=== PATIENT | female | born 1940 | race African-American/Black ===

== ENCOUNTER 2019-10-16 15:47 | Inpatient (IN) | payer MEDICARE, MEDICAID ==
[~2019-10-16] VITALS: Ht 165.1 cm; Wt 108.4 kg
[~2019-10-16 15:47] MED LIST: ATOR20TA PO; DULO30CA2 PO; FURO20TA4 PO; OXYB10TA11 PO; POTA20TA82 PO; TOPUD PO; TRAZ-251 PO
[2019-10-16] MEDS ORDERED: MORPHINE SULFATE 2 MG/ML CPJ (NOT FOR IM USE) IV ONE (17:30)
[2019-10-16 17:52] LABS: BASOPHILS % 0.4 % (0.0-2.0); EOSINOPHILS % 2.6 % (0.0-5.0); HEMATOCRIT. 35.8 % (36.0-48.0); HEMOGLOBIN. 11.9 g/dL (12.0-16.0); MEAN CORPUSCULAR HEMOGLOBIN 30.9 pg (28.0-32.0); MEAN CORPUSCULAR VOLUME 92.9 fL (81.0-99.0); MEAN PLATELET VOLUME 7.4 fl (7.4-10.4); MONOCYTES % 4.8 % (2.0-8.0); NEUTROPHILS % 72.2 % (40.0-76.0); PLATELET 203 x1000/uL (130-400); RED BLOOD CELL COUNT 3.85 mill/uL (4.2-5.4); RED CELL DISTRIBUTION WIDTH 14.3 % (11.6-14.6)
[2019-10-16 17:58] LABS: CHLORIDE 105 mEq/L (98-107)
[2019-10-16 18:00] LABS: PROTHROMBIN TIME 10.6 sec (9.6-11.0)
[2019-10-16 23:00] VITALS: BP 148/91
[2019-10-16] MEDS ORDERED: DULO60CA64 PO (23:35)
[2019-10-16] MEDS ORDERED: DILT300C50 PO (23:35)
[2019-10-17] VITALS (7 sets, daily range): BP systolic 119–179; BP diastolic 71–101
[2019-10-17] MEDS ORDERED: CLONIDINE 0.1MG TABLET PO PRN (01:30)
[2019-10-17] MEDS ORDERED: ACETAMINOPHEN 325MG TABLET PO PRN (01:30)
[2019-10-17] MEDS: MORPHINE SULFATE 2 MG/ML CPJ (NOT FOR IM USE) IV PRN ×2 (06:17→14:31)
[2019-10-17 06:55] LABS: HEMATOCRIT 34.8 % (36.0-48.0); HEMOGLOBIN 11.5 g/dL (12.0-16.0); MEAN CORPUSCULAR HEMOGLOBIN 30.6 pg (28.0-32.0); MEAN CORPUSCULAR VOLUME 92.3 fL (81.0-99.0); PLATELET 195 x1000/uL (130-400); RED BLOOD CELL COUNT 3.77 mill/uL (4.2-5.4)
[2019-10-17 07:03] LABS: CHLORIDE 103 mEq/L (98-107)
[2019-10-17] MEDS: METOPROLOL TARTRATE 50MG TABLET PO SCH ×2 (09:13→20:32)
[2019-10-17] MEDS: AMLODIPINE 10MG TABLET PO SCH (09:14)
[2019-10-17] MEDS: DULOXETINE HCL 60MG DR CAPSULE PO SCH (09:14)
[2019-10-17] MEDS: FAMOTIDINE 20MG/2ML VIAL IV SCH (09:14)
[2019-10-17] MEDS: ENOXAPARIN 30MG/0.3ML SYR SUBCUT SCH ×2 (09:16→20:33)
[2019-10-17] MEDS ORDERED: LORAZEPAM 2MG/ML CPJ IV PRN (13:45)
[2019-10-17] MEDS ORDERED: CEFTRIAXONE 1 G PREMIX 50 ML IV SCH (14:45)
[2019-10-17] MEDS: LOSARTAN POTASSIUM 50 MG TABLET PO SCH (15:46)
[2019-10-17] MEDS: CEFTRIAXONE 1,000 MG in DEXTROSE 5% WATER 50 ML IV SCH (17:09)
[2019-10-17 18:53] LABS: CLARITY URINE CLOUDY (CLEAR); COLOR URINE YELLOW (YELLOW); KETONES URINE NEGATIVE (NEGATIVE); LEUKOCYTE ESTERASE URINE 2+ (NEGATIVE); NITRITE URINE NEGATIVE (NEGATIVE); OCCULT BLOOD URINE NEGATIVE (NEGATIVE); PROTEIN URINE 2+ (NEGATIVE); SPECIFIC GRAVITY URINE 1.015 (1.005-1.030)
[2019-10-17] MEDS: TRAZODONE HCL 50MG TABLET PO SCH (20:32)
[2019-10-17] MEDS: ATORVASTATIN CALCIUM 20MG TABLET PO SCH (20:32)
[2019-10-18] VITALS: BP 104/71
[2019-10-18 04:00] VITALS: BP 130/69
[2019-10-18 07:13] LABS: BASOPHILS % 0.5 % (0.0-2.0); EOSINOPHILS % 3.9 % (0.0-5.0); HEMATOCRIT. 34.9 % (36.0-48.0); HEMOGLOBIN. 11.2 g/dL (12.0-16.0); LYMPHOCYTES % 25.4 % (20.0-50.0); MEAN CORPUSCULAR HEMOGLOBIN 30.2 pg (28.0-32.0); MEAN CORPUSCULAR VOLUME 93.5 fL (81.0-99.0); MEAN PLATELET VOLUME 8.2 fl (7.4-10.4); MONOCYTES % 7.8 % (2.0-8.0); NEUTROPHILS % 62.4 % (40.0-76.0); PLATELET 190 x1000/uL (130-400); RED BLOOD CELL COUNT 3.73 mill/uL (4.2-5.4); RED CELL DISTRIBUTION WIDTH 14.5 % (11.6-14.6)
[2019-10-18 08:00] VITALS: BP_SYST 128; BP_SYST 164; BP_DIAS 59; BP_DIAS 84
[2019-10-18] MEDS: FAMOTIDINE 20MG/2ML VIAL IV SCH (10:41)
[2019-10-18] MEDS: LOSARTAN POTASSIUM 50 MG TABLET PO SCH (10:42)
[2019-10-18] MEDS: AMLODIPINE 10MG TABLET PO SCH (10:43)
[2019-10-18] MEDS: METOPROLOL TARTRATE 50MG TABLET PO SCH ×2 (10:43→20:50)
[2019-10-18] MEDS: DULOXETINE HCL 60MG DR CAPSULE PO SCH (10:45)
[2019-10-18] MEDS: ENOXAPARIN 30MG/0.3ML SYR SUBCUT SCH ×2 (10:45→20:51)
[2019-10-18 12:00] VITALS: BP 120/80
[2019-10-18] MEDS: SODIUM CHLORIDE 0.9% 1,000 ML IV SCH ×2 (15:15→22:52)
[2019-10-18] MEDS: CEFTRIAXONE 1,000 MG in DEXTROSE 5% WATER 50 ML IV SCH (17:13)
[2019-10-18 20:30] VITALS: BP 123/98
[2019-10-18] MEDS: ATORVASTATIN CALCIUM 20MG TABLET PO SCH (20:50)
[2019-10-18] MEDS: TRAZODONE HCL 50MG TABLET PO SCH (20:50)
[2019-10-19] VITALS: BP 142/80
[2019-10-19 04:04] VITALS: BP 101/50
[2019-10-19 08:00] VITALS: BP 127/67
[2019-10-19] MEDS: DULOXETINE HCL 60MG DR CAPSULE PO SCH (08:39)
[2019-10-19] MEDS: ENOXAPARIN 30MG/0.3ML SYR SUBCUT SCH (08:39)
[2019-10-19] MEDS: FAMOTIDINE 20MG/2ML VIAL IV SCH (08:39)
[2019-10-19] MEDS: LOSARTAN POTASSIUM 50 MG TABLET PO SCH (08:39)
[2019-10-19] MEDS: METOPROLOL TARTRATE 50MG TABLET PO SCH (08:39)
[2019-10-19] MEDS ORDERED: DILTIAZEM HCL 300MG CAPSULE SR 24HR PO SCH (09:00)
[2019-10-19 09:21] LABS: HEMATOCRIT. 32.5 % (36.0-48.0); HEMOGLOBIN. 10.7 g/dL (12.0-16.0); MEAN CORPUSCULAR HEMOGLOBIN 30.5 pg (28.0-32.0); MEAN CORPUSCULAR VOLUME 92.6 fL (81.0-99.0); MEAN PLATELET VOLUME 8.5 fl (7.4-10.4); PLATELET 189 x1000/uL (130-400); RED BLOOD CELL COUNT 3.51 mill/uL (4.2-5.4); RED CELL DISTRIBUTION WIDTH 13.6 % (11.6-14.6)
[2019-10-19] MEDS ORDERED: NITR-87 MT (11:00)
[2019-10-19 12:00] VITALS: BP 108/49
[2019-10-19 12:15] VITALS: BP 127/63
[2019-10-19 14:28] LABS: PLATELET ESTIMATE NORMAL
== END 2019-10-19 13:35 | disposition home or self-care (01) | DRG 871 ==
LOC: ER 15:47 → 6WST 20:16 → EDBEDREQSVC 20:20 → EDBEDREQ 20:20 → ENRESERV 20:50
PROVIDERS: ADMIT Internal Medicine; ATTEND Internal Medicine
PROC: 2W3RX1Z Immobilization of Left Lower Leg using Splint (ICD-10-PCS; principal; 2019-10-16)
DX: A41.9 Sepsis, unspecified organism (principal); N17.0 Acute kidney failure with tubular necrosis; S82.202A Unspecified fracture of shaft of left tibia, initial encounter for closed fracture; I50.32 Chronic diastolic (congestive) heart failure; E44.0 Moderate protein-calorie malnutrition; N39.0 Urinary tract infection, site not specified; S82.402A Unspecified fracture of shaft of left fibula, initial encounter for closed fracture; I11.0 Hypertensive heart disease with heart failure; E11.9 Type 2 diabetes mellitus without complications; D64.9 Anemia, unspecified; F03.90 Unspecified dementia, unspecified severity, without behavioral disturbance, psychotic disturbance, mood disturbance, and anxiety; E66.9 Obesity, unspecified; W01.0XXA Fall on same level from slipping, tripping and stumbling without subsequent striking against object, initial encounter; X50.1XXA Overexertion from prolonged static or awkward postures, initial encounter; Y93.89 Activity, other specified; Y92.89 Other specified places as the place of occurrence of the external cause; Y99.8 Other external cause status; Z88.8 Allergy status to other drugs, medicaments and biological substances; Z68.39 Body mass index [BMI] 39.0-39.9, adult
CPT/HCPCS: 36415; 71045; 73610; 73700; 80048; 80053; 81003; 83880; 85025; 85027; 93005; 99285; J0696; J1650; J2060; J2270; J3490; J7030; J7060

== ENCOUNTER 2021-03-19 03:45 | Inpatient (IN) | payer MEDICARE, MEDICAID ==
[~2021-03-19] VITALS: Ht 165.1 cm; Wt 102.2 kg
[~2021-03-19 03:45] MED LIST changes: +DILT300C50 PO; +NITR-87 MT
[2021-03-19] MEDS ORDERED: FUROSEMIDE 40MG/4ML VIAL IV ONE (04:15)
[2021-03-19] MEDS ORDERED: NITROGLYCERIN 0.4MG TABLET SL SL PRN (04:15)
[2021-03-19] MEDS ORDERED: ASPIRIN 81MG TABLET PO ONE (04:15)
[2021-03-19 05:16] LABS: CHLORIDE 103 mEq/L (98-107)
[2021-03-19 05:20] LABS: ETHANOL BLOOD < 10 mg/dL
[2021-03-19 07:08] LABS: BASOPHILS % 0.5 % (0.0-2.0); EOSINOPHILS % 0.4 % (0.0-5.0); HEMATOCRIT. 39.2 % (36.0-48.0); HEMOGLOBIN. 12.5 g/dL (12.0-16.0); LYMPHOCYTES % 21.5 % (20.0-50.0); MEAN CORPUSCULAR HEMOGLOBIN 29.5 pg (28.0-32.0); MEAN CORPUSCULAR VOLUME 92.2 fL (81.0-99.0); MEAN PLATELET VOLUME 7.5 fl (7.4-10.4); NEUTROPHILS % 69.6 % (40.0-76.0); PLATELET 186 x1000/uL (130-400); RED BLOOD CELL COUNT 4.25 mill/uL (4.2-5.4); RED CELL DISTRIBUTION WIDTH 14.5 % (11.6-14.6)
[2021-03-19] MEDS ORDERED: ASPIRIN 81MG TABLET PO SCH (08:15)
[2021-03-19] MEDS ORDERED: FUROSEMIDE 40MG/4ML VIAL IV SCH (08:15)
[2021-03-19 09:30] LABS: CLARITY URINE CLEAR (CLEAR); COLOR URINE YELLOW (YELLOW); KETONES URINE NEGATIVE (NEGATIVE); LEUKOCYTE ESTERASE URINE NEGATIVE (NEGATIVE); NITRITE URINE NEGATIVE (NEGATIVE); OCCULT BLOOD URINE NEGATIVE (NEGATIVE); PH URINE 6.5 (4.5-8.0); PROTEIN URINE NEGATIVE (NEGATIVE); SPECIFIC GRAVITY URINE 1.009 (1.005-1.030); UROBILINOGEN URINE 0.2 E.U./dL (0.2-1.0)
[2021-03-19 09:45] LABS: *BENZODIAZEPINES SCREEN URINE NEGATIVE (NEGATIVE); *COCAINE SCREEN URINE NEGATIVE (NEGATIVE); METHADONE URINE SCREEN NEGATIVE (NEGATIVE)
[2021-03-19 09:46] LABS: *AMPHETAMINES SCREEN URINE NEGATIVE (NEGATIVE); *BARBITURATES SCREEN URINE NEGATIVE (NEGATIVE); CANNABINOID URINE SCREEN NEGATIVE (NEGATIVE); OPIATES URINE SCREEN NEGATIVE (NEGATIVE); PHENCYCLIDINE URINE SCREEN NEGATIVE (NEGATIVE)
[2021-03-19] MEDS ORDERED: FUROSEMIDE 40MG/4ML VIAL IVP ONE (10:30)
[2021-03-19 22:55] VITALS: BP 117/44
[2021-03-20] VITALS (8 sets, daily range): BP systolic 90–123; BP diastolic 44–70
[2021-03-20] MEDS: ACETAMINOPHEN 325MG TABLET PO PRN ×2 (02:38→06:41)
[2021-03-20] MEDS: AZITHROMYCIN 500 MG in DEXT 5% WATER 250 ML IV SCH (04:12)
[2021-03-20] MEDS: CARVEDILOL 3.125 MG TABLET PO SCH ×2 (08:43→21:00)
[2021-03-20] MEDS ORDERED: ALBUTEROL 6.7GM HFA INHALER ORI PRN (08:45)
[2021-03-20] MEDS ORDERED: GUAIFENESIN-DM 200MG-20MG/10ML UDC PO PRN (08:45)
[2021-03-20] MEDS: GUAIFENESIN 600MG ER TABLET PO SCH ×3 (09:00→21:00)
[2021-03-20] MEDS ORDERED: DEXAMETHASONE 4MG/ML 1ML VIAL IV SCH (09:00)
[2021-03-20] MEDS ORDERED: LISINOPRIL 5MG TABLET PO SCH (09:00)
[2021-03-20] MEDS ORDERED: IOHEXOL-350 100 ML BOTTLE ONE (10:11)
[2021-03-20] MEDS: ENOXAPARIN 30MG/0.3ML SYR SUBCUT SCH (10:21)
[2021-03-20 11:43] LABS: BASOPHILS % 0.2 % (0.0-2.0); EOSINOPHILS % 0.1 % (0.0-5.0); HEMATOCRIT. 41.4 % (36.0-48.0); HEMOGLOBIN. 13.3 g/dL (12.0-16.0); LYMPHOCYTES % 9.8 % (20.0-50.0); MEAN CORPUSCULAR HEMOGLOBIN 29.3 pg (28.0-32.0); MEAN CORPUSCULAR VOLUME 91.3 fL (81.0-99.0); MEAN PLATELET VOLUME 8.2 fl (7.4-10.4); MONOCYTES % 5.4 % (2.0-8.0); NEUTROPHILS % 84.5 % (40.0-76.0); PLATELET 71 x1000/uL (130-400); RED BLOOD CELL COUNT 4.53 mill/uL (4.2-5.4); RED CELL DISTRIBUTION WIDTH 14.6 % (11.6-14.6)
[2021-03-20] MEDS: CEFTRIAXONE 1,000 MG in DEXTROSE 5% WATER 50 ML IV SCH (11:45)
[2021-03-20] MEDS: DEXT 5%/0.45% NACL 1000ML 1,000 ML IV SCH (15:24)
[2021-03-20] MEDS ORDERED: DIGOXIN 500MCG/2ML AMP IV NR ×2 (15:30→15:58)
[2021-03-20 15:41] LABS: BG BASE EXCESS 5.2 mmol/L (-2.0-2.0); BG CARBOXYHEMOGLOBIN 0.3 % (0.5-1.5); BG DEOXYHEMOGLOBIN 6.8 % (0.0-5.0); BG FRACTION INSPIRED OXYGEN 40; BG HCO3 ACT 34.5 mmol/L (22.0-26.0); BG METHEMOGLOBIN 0.2 % (0.0-1.5); BG OXYGEN SATURATION 93.2 % (92.0-98.5); BG OXYHEMOGLOBIN 92.7 % (94.0-97.0); BG PCO2 73.7 mmHg (35.0-45.0); BG PH 7.288 (7.350-7.450); BG PO2 70.3 mmHg (75.0-100.0); BG SAMPLE SITE RIGHT RADIAL; BG TOTAL HEMOGLOBIN 14.6 g/dL (12.0-18.0); BG VENT MODE NASAL CANNULA
[2021-03-20] MEDS ORDERED: ACETYLCYSTEINE 100MG/ML 10% VIAL 4ML INH SCH (16:00)
[2021-03-20] MEDS ORDERED: PHENYLEPHRINE 50 MG in DEXT 5% WATER 245 ML IV PRN (16:30)
[2021-03-20] MEDS ORDERED: DILTIAZEM HCL 125 MG in DEXT 5% WATER 100 ML IV PRN (16:30)
[2021-03-20] MEDS: ASPIRIN 81MG TABLET PO SCH (18:46)
[2021-03-21] VITALS (54 sets, daily range): BP systolic 53–137; BP diastolic 23–98
[2021-03-21] MEDS: DEXT 5%/0.45% NACL 1000ML 1,000 ML IV SCH ×2 (05:32→17:31)
[2021-03-21 08:24] LABS: BG BASE EXCESS 8.9 mmol/L (-2.0-2.0); BG CARBOXYHEMOGLOBIN 0.7 % (0.5-1.5); BG DEOXYHEMOGLOBIN 1.5 % (0.0-5.0); BG HCO3 ACT 34.8 mmol/L (22.0-26.0); BG METHEMOGLOBIN 0.2 % (0.0-1.5); BG OXYGEN SATURATION 98.5 % (92.0-98.5); BG OXYHEMOGLOBIN 97.6 % (94.0-97.0); BG PCO2 53.2 mmHg (35.0-45.0); BG PH 7.434 (7.350-7.450); BG PO2 116.7 mmHg (75.0-100.0); BG SAMPLE SITE RIGHT RADIAL; BG TOTAL HEMOGLOBIN 13.5 g/dL (12.0-18.0); BG VENT MODE MASK - BIPAP
[2021-03-21] MEDS: DEXAMETHASONE 10 MG/ML VIAL IV SCH (08:44)
[2021-03-21] MEDS: ASPIRIN 81MG TABLET PO SCH (08:44)
[2021-03-21] MEDS: CARVEDILOL 3.125 MG TABLET PO SCH ×2 (08:44→21:00)
[2021-03-21] MEDS: GUAIFENESIN 600MG ER TABLET PO SCH ×2 (08:44→21:22)
[2021-03-21] MEDS: AZITHROMYCIN 500 MG in DEXT 5% WATER 250 ML IV SCH (08:45)
[2021-03-21 09:49] LABS: HEMATOCRIT. 37.8 % (36.0-48.0); HEMOGLOBIN. 12.5 g/dL (12.0-16.0); MEAN CORPUSCULAR HEMOGLOBIN 29.5 pg (28.0-32.0); MEAN CORPUSCULAR VOLUME 89.3 fL (81.0-99.0); MEAN PLATELET VOLUME 8.3 fl (7.4-10.4); PLATELET 190 x1000/uL (130-400); RED BLOOD CELL COUNT 4.24 mill/uL (4.2-5.4); RED CELL DISTRIBUTION WIDTH 14.6 % (11.6-14.6)
[2021-03-21] MEDS: CEFTRIAXONE 1,000 MG in DEXTROSE 5% WATER 50 ML IV SCH (12:30)
[2021-03-21] MEDS: DILTIAZEM HCL 60MG TABLET PO SCH ×2 (12:30→17:29)
[2021-03-21] MEDS: ACETAMINOPHEN 325MG TABLET PO PRN (12:31)
[2021-03-21 13:34] LABS: T4 FREE 1.65 ng/dL (0.76-1.46)
[2021-03-21] MEDS: ENOXAPARIN 30MG/0.3ML SYR SUBCUT SCH (21:22)
[2021-03-22] VITALS (48 sets, daily range): BP systolic 103–154; BP diastolic 43–106
[2021-03-22] MEDS: DILTIAZEM HCL 60MG TABLET PO SCH ×4 (06:00→17:25)
[2021-03-22 06:14] LABS: HEMATOCRIT. 37.3 % (36.0-48.0); HEMOGLOBIN. 12.1 g/dL (12.0-16.0); MEAN CORPUSCULAR HEMOGLOBIN 29.3 pg (28.0-32.0); MEAN CORPUSCULAR VOLUME 90.4 fL (81.0-99.0); MEAN PLATELET VOLUME 9.4 fl (7.4-10.4); PLATELET 168 x1000/uL (130-400); RED BLOOD CELL COUNT 4.12 mill/uL (4.2-5.4); RED CELL DISTRIBUTION WIDTH 14.9 % (11.6-14.6)
[2021-03-22 06:53] LABS: PLATELET ESTIMATE NORMAL
[2021-03-22] MEDS ORDERED: IPRATROPIUM/ALBUTEROL 0.5-3(2.5)MG/3ML NEB ONE (08:06)
[2021-03-22] MEDS: GUAIFENESIN 600MG ER TABLET PO SCH ×2 (08:15→20:56)
[2021-03-22] MEDS: DEXAMETHASONE 10 MG/ML VIAL IV SCH (08:15)
[2021-03-22] MEDS: ASPIRIN 81MG TABLET PO SCH (08:15)
[2021-03-22] MEDS: ENOXAPARIN 30MG/0.3ML SYR SUBCUT SCH ×2 (08:15→20:44)
[2021-03-22] MEDS: CARVEDILOL 3.125 MG TABLET PO SCH ×2 (08:16→20:44)
[2021-03-22 09:12] LABS: BG BASE EXCESS 2.1 mmol/L (-2.0-2.0); BG CARBOXYHEMOGLOBIN 0.5 % (0.5-1.5); BG DEOXYHEMOGLOBIN 6.9 % (0.0-5.0); BG FRACTION INSPIRED OXYGEN 26; BG HCO3 ACT 27.4 mmol/L (22.0-26.0); BG METHEMOGLOBIN 0.3 % (0.0-1.5); BG OXYHEMOGLOBIN 92.3 % (94.0-97.0); BG PCO2 45.2 mmHg (35.0-45.0); BG PO2 64.6 mmHg (75.0-100.0); BG SAMPLE SITE LEFT RADIAL; BG TOTAL HEMOGLOBIN 12.7 g/dL (12.0-18.0); BG VENT MODE NASAL CANNULA
[2021-03-22] MEDS: DEXT 5%/0.45% NACL 1000ML 1,000 ML IV SCH (09:55)
[2021-03-22] MEDS: AZITHROMYCIN 500 MG in DEXT 5% WATER 250 ML IV SCH (09:57)
[2021-03-22] MEDS: CEFTRIAXONE 1,000 MG in DEXTROSE 5% WATER 50 ML IV SCH (11:29)
[2021-03-22 13:37] LABS: PLATELET ESTIMATE NORMAL
[2021-03-23] VITALS (24 sets, daily range): BP systolic 105–170; BP diastolic 50–99
[2021-03-23] MEDS: DILTIAZEM HCL 60MG TABLET PO SCH ×4 (05:17→18:54)
[2021-03-23 06:04] LABS: HEMATOCRIT. 38.1 % (36.0-48.0); HEMOGLOBIN. 12.4 g/dL (12.0-16.0); MEAN CORPUSCULAR HEMOGLOBIN 29.2 pg (28.0-32.0); MEAN CORPUSCULAR VOLUME 89.9 fL (81.0-99.0); MEAN PLATELET VOLUME 9.6 fl (7.4-10.4); PLATELET 163 x1000/uL (130-400); RED BLOOD CELL COUNT 4.24 mill/uL (4.2-5.4); RED CELL DISTRIBUTION WIDTH 14.5 % (11.6-14.6)
[2021-03-23] MEDS: ENOXAPARIN 30MG/0.3ML SYR SUBCUT SCH ×2 (08:08→22:26)
[2021-03-23] MEDS: GUAIFENESIN 600MG ER TABLET PO SCH ×2 (08:08→21:00)
[2021-03-23] MEDS: ASPIRIN 81MG TABLET PO SCH (08:08)
[2021-03-23] MEDS: DEXAMETHASONE 10 MG/ML VIAL IV SCH (08:09)
[2021-03-23] MEDS: CARVEDILOL 3.125 MG TABLET PO SCH ×2 (08:09→22:26)
[2021-03-23] MEDS: AZITHROMYCIN 500 MG in DEXT 5% WATER 250 ML IV SCH (08:09)
[2021-03-23] MEDS: CEFTRIAXONE 1,000 MG in DEXTROSE 5% WATER 50 ML IV SCH (09:12)
[2021-03-23 10:35] LABS: BG BASE EXCESS 4.6 mmol/L (-2.0-2.0); BG CARBOXYHEMOGLOBIN 0.8 % (0.5-1.5); BG DEOXYHEMOGLOBIN 10.2 % (0.0-5.0); BG HCO3 ACT 29.9 mmol/L (22.0-26.0); BG METHEMOGLOBIN 0.3 % (0.0-1.5); BG OXYGEN SATURATION 89.7 % (92.0-98.5); BG OXYHEMOGLOBIN 88.7 % (94.0-97.0); BG PCO2 46.5 mmHg (35.0-45.0); BG PH 7.426 (7.350-7.450); BG PO2 54.8 mmHg (75.0-100.0); BG SAMPLE SITE RIGHT RADIAL; BG TOTAL HEMOGLOBIN 15.1 g/dL (12.0-18.0); BG VENT MODE ROOM AIR
[2021-03-23] MEDS ORDERED: CLONIDINE 0.1MG TABLET PO PRN (15:15)
[2021-03-23 22:31] LABS: PLATELET ESTIMATE NORMAL
[2021-03-24] VITALS: BP 139/69
[2021-03-24 04:00] VITALS: BP 141/72
[2021-03-24] MEDS: DILTIAZEM HCL 60MG TABLET PO SCH ×2 (05:04)
[2021-03-24 08:00] VITALS: BP 153/73
[2021-03-24] MEDS: AZITHROMYCIN 500 MG in DEXT 5% WATER 250 ML IV SCH (09:08)
[2021-03-24] MEDS: GUAIFENESIN 600MG ER TABLET PO SCH ×3 (09:09→21:19)
[2021-03-24] MEDS: ENOXAPARIN 30MG/0.3ML SYR SUBCUT SCH ×2 (09:09→21:20)
[2021-03-24] MEDS: ASPIRIN 81MG TABLET PO SCH (09:09)
[2021-03-24] MEDS: DEXAMETHASONE 10 MG/ML VIAL IV SCH (09:09)
[2021-03-24] MEDS: CARVEDILOL 3.125 MG TABLET PO SCH ×3 (09:09→21:19)
[2021-03-24] MEDS: ACETAMINOPHEN 325MG TABLET PO PRN (10:09)
[2021-03-24] MEDS: CEFTRIAXONE 1,000 MG in DEXTROSE 5% WATER 50 ML IV SCH (10:43)
[2021-03-24 12:00] VITALS: BP 144/74
[2021-03-24] MEDS ORDERED: TRAMADOL 50MG TABLET PO PRN (12:00)
[2021-03-24] MEDS: DILTIAZEM HCL 30MG TABLET PO SCH ×2 (12:16→18:00)
[2021-03-24] MEDS: GABAPENTIN 100MG CAPSULE PO SCH ×3 (15:28→22:00)
[2021-03-24 16:00] VITALS: BP 141/83
[2021-03-24 20:00] VITALS: BP 143/80
[2021-03-25] MEDS: DILTIAZEM HCL 30MG TABLET PO SCH ×2 (00:47→06:00)
[2021-03-25 04:00] VITALS: BP 157/58
[2021-03-25] MEDS: GABAPENTIN 100MG CAPSULE PO SCH ×3 (06:00→21:04)
[2021-03-25 08:00] VITALS: BP 119/67
[2021-03-25] MEDS: GUAIFENESIN 600MG ER TABLET PO SCH ×2 (09:00→21:04)
[2021-03-25] MEDS ORDERED: DILTIAZEM HCL 60MG TABLET PO PRN (09:00)
[2021-03-25] MEDS: CARVEDILOL 3.125 MG TABLET PO SCH ×2 (09:00→21:04)
[2021-03-25] MEDS: ASPIRIN 81MG TABLET PO SCH (09:00)
[2021-03-25] MEDS: ENOXAPARIN 30MG/0.3ML SYR SUBCUT SCH ×2 (09:01→21:04)
[2021-03-25] MEDS: DEXAMETHASONE 10 MG/ML VIAL IV SCH (09:01)
[2021-03-25 09:07] LABS: HEMATOCRIT. 42.1 % (36.0-48.0); HEMOGLOBIN. 13.7 g/dL (12.0-16.0); MEAN CORPUSCULAR HEMOGLOBIN 29.5 pg (28.0-32.0); MEAN CORPUSCULAR VOLUME 90.7 fL (81.0-99.0); MEAN PLATELET VOLUME 9.2 fl (7.4-10.4); PLATELET 145 x1000/uL (130-400); RED BLOOD CELL COUNT 4.64 mill/uL (4.2-5.4); RED CELL DISTRIBUTION WIDTH 14.6 % (11.6-14.6)
[2021-03-25 12:00] VITALS: BP 150/82
[2021-03-25 14:54] LABS: BG BASE EXCESS 6.5 mmol/L (-2.0-2.0); BG CARBOXYHEMOGLOBIN 0.6 % (0.5-1.5); BG DEOXYHEMOGLOBIN 8.5 % (0.0-5.0); BG FRACTION INSPIRED OXYGEN 21; BG HCO3 ACT 32.9 mmol/L (22.0-26.0); BG OXYGEN SATURATION 91.4 % (92.0-98.5); BG OXYHEMOGLOBIN 90.9 % (94.0-97.0); BG PCO2 54.4 mmHg (35.0-45.0); BG PO2 59.5 mmHg (75.0-100.0); BG SAMPLE SITE RIGHT RADIAL; BG TOTAL HEMOGLOBIN 14.5 g/dL (12.0-18.0); BG VENT MODE ROOM AIR
[2021-03-25] MEDS ORDERED: ACETAMINOPHEN 325MG TABLET PO PRN (17:15)
[2021-03-25 20:00] VITALS: BP 153/92
[2021-03-26 04:00] VITALS: BP 152/87
[2021-03-26] MEDS: GABAPENTIN 100MG CAPSULE PO SCH ×3 (06:06→21:09)
[2021-03-26 08:00] VITALS: BP 153/69
[2021-03-26] MEDS: GUAIFENESIN 600MG ER TABLET PO SCH ×2 (08:59→21:07)
[2021-03-26] MEDS: ENOXAPARIN 30MG/0.3ML SYR SUBCUT SCH ×2 (08:59→21:09)
[2021-03-26] MEDS: ASPIRIN 81MG TABLET PO SCH (08:59)
[2021-03-26] MEDS: CARVEDILOL 3.125 MG TABLET PO SCH ×2 (08:59→21:08)
[2021-03-26] MEDS: DEXAMETHASONE 10 MG/ML VIAL IV SCH (08:59)
[2021-03-26 09:04] LABS: PLATELET ESTIMATE NORMAL
[2021-03-26 11:14] LABS: HEMATOCRIT. 41.6 % (36.0-48.0); HEMOGLOBIN. 13.4 g/dL (12.0-16.0); MEAN CORPUSCULAR HEMOGLOBIN 29.3 pg (28.0-32.0); MEAN CORPUSCULAR VOLUME 90.5 fL (81.0-99.0); PLATELET 154 x1000/uL (130-400)
[2021-03-26 11:45] LABS: CHLORIDE 96 mEq/L (98-107)
[2021-03-26 12:00] VITALS: BP 142/73
[2021-03-26 12:39] LABS: PLATELET ESTIMATE NORMAL
[2021-03-26 16:00] VITALS: BP 132/66
[2021-03-26 21:19] VITALS: BP 138/64
[2021-03-27 04:00] VITALS: BP 160/63
[2021-03-27] MEDS: GABAPENTIN 100MG CAPSULE PO SCH ×3 (05:55→23:44)
[2021-03-27 08:00] VITALS: BP 131/86
[2021-03-27] MEDS: DEXAMETHASONE 10 MG/ML VIAL IV SCH (09:21)
[2021-03-27] MEDS: GUAIFENESIN 600MG ER TABLET PO SCH ×2 (09:21→22:20)
[2021-03-27] MEDS: ASPIRIN 81MG TABLET PO SCH (09:21)
[2021-03-27] MEDS: CARVEDILOL 3.125 MG TABLET PO SCH ×2 (09:22→22:20)
[2021-03-27 12:00] VITALS: BP 110/59
[2021-03-27] MEDS: ENOXAPARIN 30MG/0.3ML SYR SUBCUT SCH ×2 (13:29→22:20)
[2021-03-27] MEDS: DILTIAZEM HCL 60MG TABLET PO SCH ×2 (13:30→23:44)
[2021-03-27 16:00] VITALS: BP 123/60
[2021-03-27 20:00] VITALS: BP 103/50
[2021-03-28 04:00] VITALS: BP 105/53
[2021-03-28] MEDS: DILTIAZEM HCL 60MG TABLET PO SCH ×3 (06:00→21:59)
[2021-03-28] MEDS: GABAPENTIN 100MG CAPSULE PO SCH ×3 (06:30→22:00)
[2021-03-28 08:00] VITALS: BP 114/52
[2021-03-28] MEDS: ENOXAPARIN 30MG/0.3ML SYR SUBCUT SCH ×2 (08:57→21:58)
[2021-03-28] MEDS: DEXAMETHASONE 10 MG/ML VIAL IV SCH (08:57)
[2021-03-28] MEDS: GUAIFENESIN 600MG ER TABLET PO SCH ×2 (08:58→21:00)
[2021-03-28] MEDS: CARVEDILOL 3.125 MG TABLET PO SCH ×2 (08:58→21:00)
[2021-03-28] MEDS: ASPIRIN 81MG TABLET PO SCH (08:58)
[2021-03-28 12:00] VITALS: BP 102/54
[2021-03-28 16:00] VITALS: BP 112/66
[2021-03-28 20:00] VITALS: BP 98/52
[2021-03-29] VITALS: BP 115/50
[2021-03-29 04:00] VITALS: BP 118/48
[2021-03-29] MEDS: GABAPENTIN 100MG CAPSULE PO SCH ×3 (06:00→22:00)
[2021-03-29] MEDS: DILTIAZEM HCL 60MG TABLET PO SCH ×3 (06:00→22:00)
[2021-03-29 08:00] VITALS: BP 96/56
[2021-03-29] MEDS: ASPIRIN 81MG TABLET PO SCH (08:23)
[2021-03-29] MEDS: GUAIFENESIN 600MG ER TABLET PO SCH ×2 (08:23→21:00)
[2021-03-29] MEDS: CARVEDILOL 3.125 MG TABLET PO SCH ×2 (08:23→21:00)
[2021-03-29] MEDS: ENOXAPARIN 30MG/0.3ML SYR SUBCUT SCH ×2 (08:57→21:00)
[2021-03-29] MEDS: DEXAMETHASONE 10 MG/ML VIAL IV SCH (08:57)
[2021-03-29] MEDS ORDERED: NALOXONE HCL 0.4MG/ML VIAL IV PRN (11:00)
[2021-03-29 12:00] VITALS: BP 95/62
[2021-03-29] MEDS: SODIUM CHLORIDE 0.9% 1,000 ML IV SCH (12:04)
[2021-03-29] MEDS ORDERED: DEXTROSE 50% WATER 50ML SYRINGE IV NR (14:15)
[2021-03-29] MEDS ORDERED: INSULIN REGULAR (HUMULIN R) UD 100 UNITS/ML SYR IV NR (15:30)
[2021-03-29 16:00] VITALS: BP 90/40
[2021-03-29 20:00] VITALS: BP 83/44
[2021-03-29 21:34] LABS: HEMATOCRIT. 51.2 % (36.0-48.0); HEMOGLOBIN. 16.4 g/dL (12.0-16.0); MEAN CORPUSCULAR HEMOGLOBIN 28.9 pg (28.0-32.0); PLATELET 164 x1000/uL (130-400); RED BLOOD CELL COUNT 5.69 mill/uL (4.2-5.4)
[2021-03-29 22:16] LABS: NUCLEATED RED BLOOD CELLS 1 /100 WBC; PLATELET ESTIMATE NORMAL
[2021-03-30] MEDS: SODIUM CHLORIDE 0.9% 1,000 ML IV SCH (00:05)
[2021-03-30 04:00] VITALS: BP 63/20
[2021-03-30] MEDS: GABAPENTIN 100MG CAPSULE PO SCH (06:00)
[2021-03-30] MEDS: DILTIAZEM HCL 60MG TABLET PO SCH (06:00)
[2021-03-30 08:00] VITALS: BP 60/25
[2021-03-30 08:30] LABS: HEMATOCRIT. 50.1 % (36.0-48.0); HEMOGLOBIN. 16.2 g/dL (12.0-16.0); MEAN CORPUSCULAR HEMOGLOBIN 29.2 pg (28.0-32.0); MEAN CORPUSCULAR VOLUME 90.6 fL (81.0-99.0); MEAN PLATELET VOLUME 11.1 fl (7.4-10.4); PLATELET 142 x1000/uL (130-400); RED BLOOD CELL COUNT 5.53 mill/uL (4.2-5.4); RED CELL DISTRIBUTION WIDTH 15.2 % (11.6-14.6)
[2021-03-30] MEDS: ASPIRIN 81MG TABLET PO SCH (08:46)
[2021-03-30] MEDS: GUAIFENESIN 600MG ER TABLET PO SCH (08:46)
[2021-03-30] MEDS: CARVEDILOL 3.125 MG TABLET PO SCH (08:46)
[2021-03-30] MEDS: ENOXAPARIN 30MG/0.3ML SYR SUBCUT SCH (08:47)
[2021-03-30] MEDS: DEXAMETHASONE 10 MG/ML VIAL IV SCH (08:47)
[2021-03-30 17:16] LABS: PLATELET ESTIMATE NORMAL
== END 2021-03-30 13:15 | DRG 871 ==
LOC: ER 03:45 → 5WST 12:37 → ENRESERV 21:49 → 7EST 03-20 02:45 → MICUNO 03-20 23:05 → MICUSO 03-22 03:45 → 7EST 03-23 14:17
PROVIDERS: ADMIT Internal Medicine; ATTEND Internal Medicine
PROC: 5A09357 Assistance with Respiratory Ventilation, Less than 24 Consecutive Hours, Continuous Positive Airway Pressure (ICD-10-PCS; principal; 2021-03-20)
PROC: 5A09357 Assistance with Respiratory Ventilation, Less than 24 Consecutive Hours, Continuous Positive Airway Pressure (ICD-10-PCS; 2021-03-22)
PROC: 5A09457 Assistance with Respiratory Ventilation, 24-96 Consecutive Hours, Continuous Positive Airway Pressure (ICD-10-PCS; 2021-03-23)
PROC: 5A09457 Assistance with Respiratory Ventilation, 24-96 Consecutive Hours, Continuous Positive Airway Pressure (ICD-10-PCS; 2021-03-28)
DX: A41.89 Other specified sepsis (principal); U07.1 COVID-19; J12.82 Pneumonia due to coronavirus disease 2019; J96.22 Acute and chronic respiratory failure with hypercapnia; J96.21 Acute and chronic respiratory failure with hypoxia; I50.33 Acute on chronic diastolic (congestive) heart failure; E44.0 Moderate protein-calorie malnutrition; G93.40 Encephalopathy, unspecified; N17.9 Acute kidney failure, unspecified; E66.2 Morbid (severe) obesity with alveolar hypoventilation; I24.8 Other forms of acute ischemic heart disease; I13.0 Hypertensive heart and chronic kidney disease with heart failure and stage 1 through stage 4 chronic kidney disease, or unspecified chronic kidney disease; Z66 Do not resuscitate; N18.9 Chronic kidney disease, unspecified; E87.5 Hyperkalemia; R53.81 Other malaise; D69.6 Thrombocytopenia, unspecified; I48.0 Paroxysmal atrial fibrillation; Z86.73 Personal history of transient ischemic attack (TIA), and cerebral infarction without residual deficits; Z68.37 Body mass index [BMI] 37.0-37.9, adult; Z88.8 Allergy status to other drugs, medicaments and biological substances; Z79.899 Other long term (current) drug therapy; Z74.01 Bed confinement status
CPT/HCPCS: 36415; 36600; 70496; 70551; 71045; 80048; 80053; 80061; 80305; 80320; 81003; 82140; 82375; 82805; 82962; 83605; 83735; 83880; 84439; 84443; 84480; 84484; 85025; 87426; 92610; 93005; 93880; 93970; 94660; 97162; 99285; C1893; J0456; J0696; J1100; J1160; J1650; J1815; J1940; J7030; J7040; J7060; J7608; Q9967; U0003; U0005; G0480